=== PATIENT | female | born 1970 | race Caucasian/White ===

== ENCOUNTER → 2021-06-06 | Outpatient (CLI) | payer BC | END | disposition home or self-care (01) | LOC: LAB SHORT 17:25 → LAB 17:25 | DX: N12 Tubulo-interstitial nephritis, not specified as acute or chronic (principal) | CPT/HCPCS: 87077; 87086; 87186 ==

== ENCOUNTER → 2021-09-07 | Outpatient (CLI) | payer BC ==
[2021-09-07 14:46] LABS: Source, Urine Clean Catch
[2021-09-07 17:26] LABS: Appearance, Urine Hazy (Clear); Bilirubin, Urine Neg (Neg); Blood, Urine 1+ (Neg); Color, Urine Yellow (P-Yellow); Glucose Qualitative, Urine Neg (Neg); Ketones, Urine 3+ (Neg); Leukocyte Esterase, Urine 1+ (Neg); Nitrite, Urine Pos (Neg); Protein, Urine Neg (Neg); Urobilinogen, Urine NORM (Normal)
[2021-09-07 17:43] LABS: Amorphous Light (0-Heavy); Bacteria Many /hpf; Squamous Epithelial Cells Few /hpf (Few)
== END ==
LOC: LAB SHORT 14:44 → LAB 14:44
PROVIDERS: Family Medicine
DX: R30.9 Painful micturition, unspecified (principal)
CPT/HCPCS: 81001; 87077; 87086; 87186

== ENCOUNTER 2023-07-22 08:22 | Day surgery (SDC) | payer BC ==
[~2023-07-22] VITALS: Ht 162.6 cm; Wt 78.1 kg
[2023-07-22] MEDS ORDERED: LOSARTAN (08:43)
[2023-07-22] MEDS ORDERED: C COMPLEX1000 M1 (08:43)
[2023-07-22] MEDS ORDERED: THERA-D2000 UNIT (08:44)
[2023-07-22] MEDS ORDERED: [UNRECOGNIZED DRUG - OTHER] (08:44)
[2023-07-22] MEDS ORDERED: FISH OIL 1,2001 EAC7 (08:44)
--- NOTE | 2023-07-22 11:26 | NUR ---
07/22/23 1126 ANTHONY HART ESOPHAGUS DILITATION DONE W/ CHAKA 54 SAVORY 18 AND BALLOONN= 18,19,20
[2023-07-22 11:31] VITALS: BP 111/70
== END 2023-07-22 11:11 | disposition home or self-care (01) ==
LOC: ORSCSDS 08:22
PROVIDERS: Internal Medicine Gastroenterology
PROC: 0DJD8ZZ Inspection of Lower Intestinal Tract, Via Natural or Artificial Opening Endoscopic (ICD-10-PCS; principal; 2023-07-22 09:45)
PROC: 0D758ZZ Dilation of Esophagus, Via Natural or Artificial Opening Endoscopic (ICD-10-PCS; principal; 2023-07-22 09:45)
PROC: 0DB58ZX Excision of Esophagus, Via Natural or Artificial Opening Endoscopic, Diagnostic (ICD-10-PCS; principal; 2023-07-22 09:45)
DX: K22.2 Esophageal obstruction (principal); K20.0 Eosinophilic esophagitis; Z12.11 Encounter for screening for malignant neoplasm of colon; Z83.71 Family history of colonic polyps; Z87.19 Personal history of other diseases of the digestive system; K44.9 Diaphragmatic hernia without obstruction or gangrene; K57.30 Diverticulosis of large intestine without perforation or abscess without bleeding; K64.8 Other hemorrhoids; Z79.899 Other long term (current) drug therapy
CPT/HCPCS: 43249; 43239; G0105; 88305; C1726; J2250; J2704; J7120

== ENCOUNTER 2023-12-12 08:08 | Day surgery (SDC) | payer BC ==
[~2023-12-12] VITALS: Ht 162.6 cm; Wt 80.5 kg
[~2023-12-12 08:08] MED LIST: C COMPLEX1000 M1 PO; GLUCOSAMINE HCL PO; LOSARTAN POTAS100 M1 PO; MULTI-VITAMIN1 EAC2 PO; OMEGA-3 FISH O1 EAC6; OMEP20ER PO; THERA-D2000 UNIT PO; [UNRECOGNIZED DRUG - OTHER]
[2023-12-12] MEDS ORDERED: LOSA50 (08:41)
[2023-12-12] MEDS ORDERED: BUPR150ER (08:42)
[2023-12-12 10:14] VITALS: BP 112/69
== END 2023-12-12 10:33 | disposition home or self-care (01) ==
LOC: ORSCSDS 08:08
PROVIDERS: Internal Medicine Gastroenterology
PROC: 0DB58ZX Excision of Esophagus, Via Natural or Artificial Opening Endoscopic, Diagnostic (ICD-10-PCS; principal; 2023-12-12 09:30)
PROC: 0D757ZZ Dilation of Esophagus, Via Natural or Artificial Opening (ICD-10-PCS; principal; 2023-12-12 09:30)
DX: K20.0 Eosinophilic esophagitis (principal); K22.2 Esophageal obstruction; K44.9 Diaphragmatic hernia without obstruction or gangrene; R13.10 Dysphagia, unspecified; I10 Essential (primary) hypertension; Z79.899 Other long term (current) drug therapy
CPT/HCPCS: 88305; C1726; J2704; J7120